=== PATIENT | female | born 1955 | race Caucasian/White ===

== ENCOUNTER 2016-04-18 14:22 | Emergency (ER) | payer BC ==
[2016-04-18 15:12] VITALS: BP 147/40
[2016-04-18] MEDS ORDERED: Ketorolac INJ* 60 MG/2 ML VIAL IM ONE (15:30)
[2016-04-18] MEDS ORDERED: Metoclopramide TAB* 10 MG PO ONE (15:31)
--- NOTE | 2016-04-18 15:35 | UC ---
Abdominal Pain Female HPI - HPI Summary HPI Summary: sudden onset this morning of abdominal cramping and diarrhea. Had about 8 episodes non-bloody diarrhea this morning, no fever, no vomiting. Tried to sip fluids, but this made her cramping pain worse. 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 Has had an appendectomy and hysterectomy. No history of colitis or diverticulitis. No GI disorders. Hurts to walk upright, feels best to curl up in a ball with heat on the abdomen. - History of Current Complaint Chief Complaint: UCAbdominalPain Stated Complaint: ABDOMINAL PAIN Time Seen by Provider: 04/18/16 15:17 Hx Obtained From: Patient Onset/Duration: Gradual Onset Timing: Constant Severity Initially: Mild Severity Currently: Moderate Location: Suprapubic Radiates: No Character: Aching, Colicy, Cramping, Dull Aggravating Factor(s): Food, Movement Alleviating Factor(s): Position - , Other: - heat Associated Signs and Symptoms: Positive: Negative, Decreased Appetite, Diarrhea. Negative: Diaphoresis, Fever, Cough, Chest Pain, Dizzy, Back Pain, Constipation, Blood in Stool, Urinary Symptoms, Vaginal Bleeding, Vaginal Discharge, Nausea, Vomiting - Risk Factors Ectopic Risk Factor: Negative Ovarian Torsion Risk Factor: Negative Allergies/Adverse Reactions: Allergies Allergy/AdvReac Type Severity Reaction Status Date / Time No Known Allergies Allergy Verified 04/18/16 15:12 Home Medications: Home Medications ALPRAZolam TAB* [Xanax TAB*] 0.5 mg PO BID PRN 04/18/16 [History Confirmed 04/18] Diclofenac Potassium (Migraine [Cambia] 50 mg PO DAILY 04/18/16 [History Confirmed 04/18/16] Divalproex Sodium [Depakote ER] 1,000 mg PO DAILY 04/18/16 [History Confirmed ] PMH/Surg Hx/FS Hx/Imm Hx Previously Healthy: Yes - Surgical History Surgical History: Yes Surgery Procedure, Year, and Place: [facility] Hysterectomy]. C section - Family History Known Family History: Positive: Other - no GI disorders in family - Social History Occupation: Employed Full-time Lives: With Family Alcohol Use: None Substance Use Type: None Smoking Status (MU): Never Smoked Tobacco Review of Systems Constitutional: Negative Skin: Negative Eyes: Negative ENT: Negative Respiratory: Negative Cardiovascular: Negative Gastrointestinal: Abdominal Pain, Diarrhea Genitourinary: Negative Motor: Negative Neurovascular: Negative Musculoskeletal: Negative Neurological: Negative Psychological: Negative All Other Systems Reviewed And Are Negative: Yes Physical Exam Triage Information Reviewed: Yes Appearance: Well-Appearing, Well-Nourished, Pain Distress - sitting hunched forward, clutching lower abdomen, Thin Vital Signs: Initial Vital Signs Temp 99.3 F 04/18/16 15:08 Pulse 100 04/18/16 15:08 Resp 18 04/18/16 15:08 BP 147/40 04/18/16 15:08 Pulse Ox 100 04/18/16 15:08 Vital Signs Reviewed: Yes Eye Exam: Normal Neck exam: Normal Neck: Positive: Supple Respiratory Exam: Normal Respiratory: Positive: Lungs clear, Normal breath sounds, No respiratory distress, No accessory muscle use Cardiovascular Exam: Normal Cardiovascular: Positive: RRR, No Murmur, Pulses Normal, Brisk Capillary Refill Abdomen Description: Positive: No Organomegaly, Soft, Other: - mild/mod diffuse lower abdomen tenderness. No peritoneal signs. No rebound or guarding. No psoas sign.. Negative: Bruit, CVA Tenderness (R), CVA Tenderness (L), Distended, Guarding, Hernia @, Hepatomegaly, McBurney's Point Tenderness, Peritoneal Signs , Pulsatile Mass, Splenomegaly Musculoskeletal Exam: Normal Neurological Exam: Normal Psychological Exam: Normal Skin Exam: Normal Re-Evaluation - Re-Evaluation First Eval Re-Evaluation Time: 16:00 Change: Improved Comment: feeling some better after Toradol IM. Wants to try home treatment, will go to ER if worsening Abd Pain Female Course/Dx - Differential Dx/Diagnosis Provider Diagnoses: gastroenteritis Discharge - Discharge Plan Condition: Stable Disposition: HOME Prescriptions: Dicyclomine CAP* [Bentyl CAP*] 10 mg PO TID PRN #14 cap PRN Reason: abdominal cramps Patient Education Materials: Enteritis (ED) Referrals: Gagandeep COBB,Galo Drake [Primary Care Provider] - Additional Instructions: If your pain continues to worsen, particularly if you have bloody stools or fever, you should go to the ER for further testing.
[2016-04-18] MEDS ORDERED: HYDROcodone/ACETAMIN 5-325 MG* 1 TAB PO ONE (15:56)
== END 2016-04-18 16:10 | disposition home or self-care (01) ==
LOC: UCCORT 14:22
DX: K52.9 Noninfective gastroenteritis and colitis, unspecified (principal)
CPT/HCPCS: 96372; 99202; A9270-GY; G0463; J1885

== ENCOUNTER 2017-06-05 09:28 | Emergency (ER) | payer BC ==
--- NOTE | 2017-06-05 11:20 | UC ---
Ear Complaint HPI - HPI Summary HPI Summary: 62 y/o female presents to the urgent care c/o nasal congestion w/ green nasal discharge, RUSSO nd sinus pain and pressure for the past week. Pt also states left ear pain w/ yellowish discharge and decrease hearing since yesterday. Pain is 6/ 10/ She has taken Mucinex and her medications for Migraine, and has done the netti pot to alleviate symptoms w/o any improvement. Pt denies fever, dizziness , SOB, chest pain, cough, abdominal pain, N/V/D. - History of Current Complaint Stated Complaint: EAR PAIN & DRAINAGE Time Seen by Provider: 06/05/17 11:14 Hx Obtained From: Patient Onset/Duration: Gradual Onset, Lasting Weeks - 1 week, Still Present, Worse Since - yesterday Severity Initially: Mild Severity Currently: Moderate Pain Intensity: 6 Pain Scale Used: 0-10 Numeric Aggravating Factors: Other - touch left ear Alleviating Factors: OTC Meds Associated Signs/Symptoms: Positive: Hearing Loss - left ear, URI Symptoms - Allergies/Home Medications Allergies/Adverse Reactions: Allergies Allergy/AdvReac Type Severity Reaction Status Date / Time No Known Allergies Allergy Verified 06/05/17 11:25 Home Medications: Home Medications Amitriptyline TAB* [Elavil TAB*] 1 tab BEDTIME 06/05/17 [History Confirmed 06/05] Estradiol PATCH 0.0375/DAY* 1 patch WEEKLY 06/05/17 [History Confirmed 06/05/17] PMH/Surg Hx/FS Hx/Imm Hx Previously Healthy: Yes Neurological History: Migraine - Surgical History Surgical History: Yes Surgery Procedure, Year, and Place: [facility] Hysterectomy]. C section - Family History Known Family History: Positive: None - Pt denies FMHX - Social History Occupation: Employed Full-time Lives: With Family Alcohol Use: None Substance Use Type: None Smoking Status (MU): Never Smoked Tobacco Review of Systems Constitutional: Negative Skin: Negative Eyes: Negative ENT: Ear Ache - left ear pain, Nasal Discharge, Sinus Congestion, Sinus Pain/ Tenderness Respiratory: Negative Cardiovascular: Negative Gastrointestinal: Negative Genitourinary: Negative Motor: Negative Neurovascular: Negative Musculoskeletal: Negative Neurological: Headache Psychological: Negative Is Patient Immunocompromised?: No All Other Systems Reviewed And Are Negative: Yes Physical Exam - Summary Physical Exam Summary: Vitals: reviewed General: Well developed, well-nourished female patient with NAD. Head and face: Normocephalic and atraumatic, Positive tenderness over the frontal and maxillary sinuses.. Eyes: PERRLA, EOMI x 2. Normal conjunctiva. No eye discharge. ENT: Left esternal ear canal w/ erythema and moderate yellwoish ear discharge, unable to visualize LF TM, RT external ear canal clear, RT TM WNL. Nose: with yellowish discharge and erythematous mucosa. Pharynx with mild erythema, no exudate. Neck: Supple, no JVD, no carotid bruits and no lymphadenopathy. Lungs: clear, no rales, no rhonchi, no wheezes. CVS: RRR, S1 and S2 present no murmurs or gallops appreciated. Abdomen: soft nontender with positive bowel sounds. Extremities: no edema noted. Neuro: WNL. Skin: warm and dry Triage Information Reviewed: Yes Ear Complaint Course/Dx - Course Course Of Treatment: 62 y/o female presents to the urgent care c/o nasal congestion w/ green nasal discharge, RUSSO nd sinus pain and pressure for the past week. Pt also states left ear pain w/ yellowish discharge and decrease hearing since yesterday. Pain is 6/10/ She has taken Mucinex and her medications for Migraine, and has done the netti pot to alleviate symptoms w/o any improvement. Pt denies fever, dizziness, SOB, chest pain, cough, abdominal pain , N/V/D. Hx obtained. Pt w/ acute bacterial sinusitis and left otitis externa on examination. Pt with 1 week of symptoms getting worse. Pt Rx Augmentin PO and flonase nasal spray and Ciprodex otic drops for otitis externa. Advised to contineu w/ Ibuprofen PO for pain. Discharge instructions explained to Pt. Advised to Return to the clinic or PCP if symptoms do not improve.Pt understood and agreed with plan of care. - Differential Dx/Diagnosis Differential Diagnosis/HQI/PQRI: Otitis Externa, Otitis Media, Perforated TM, Pharyngitis, URI, Other - sinusitis, Provider Diagnoses: 1- Acute bacterial sinusitis. 2-Left otitis externa Discharge - Discharge Plan Condition: Stable Disposition: HOME Prescriptions: Amoxicillin/Clavulanate TAB* [Augmentin TAB 875*] 875 mg PO BID #20 tab Ciproflox/Dexameth OTIC.SUSP* [Ciprodex OTIC.SUSP*] 4 drop LEFT EAR BID #1 btl Fluticasone NASAL SPRAY 50MCG* [Flonase NASAL SPRAY 50MCG*] 2 spray BOTH NARES DAILY #1 btl Patient Education Materials: Sinusitis (ED), Otitis Externa (ED) Referrals: Suzette Barnhart MD [Primary Care Provider] - 3 Days Additional Instructions: 1- Please increase fluid intake and rest. take full course of antibiotic to avoid resistance 2-Use Flonase as directed to help drain fluid. Also buy saline drops to clear sinuses 3-Apply the Otic drops as directed to alleviate your left otitis externa. Continue taking Iuprofen or Tylenol PO q6-8hgrsafter meals for pain and swelling 4-Return to the clinic or PCP in 3 days if symptoms do not improve for further management and treatment
[2017-06-05 11:32] VITALS: BP 120/75
== END 2017-06-05 11:53 | disposition home or self-care (01) ==
LOC: UCCORT 09:28
DX: J01.90 Acute sinusitis, unspecified (principal); B96.89 Other specified bacterial agents as the cause of diseases classified elsewhere; H60.92 Unspecified otitis externa, left ear
CPT/HCPCS: 99212; G0463

== ENCOUNTER 2017-06-14 14:06 | Emergency (ER) | payer BC ==
[2017-06-14 14:35] VITALS: BP 131/73
--- NOTE | 2017-06-14 15:16 | UC ---
Ear Complaint HPI - HPI Summary HPI Summary: PT COMPLETED HER 9TH OF 10 DAYS WORTH OF AMOXICILLIN FOR EAR AND SINUS INFECTIONS SHE IS STILL USING HER DROPS ON THE LEFT EAR. SHE RETRUNS BECAUSE THE R EAR IS PLUGGED AND THE L STILL HAS SOME PAIN. HER SINUSES ARE BETTER. NO RUSSO OR FEVER. - History of Current Complaint Hx Obtained From: Patient Onset/Duration: Gradual Onset Aggravating Factors: Nothing Alleviating Factors: Nothing Associated Signs/Symptoms: Negative: Discharge, Foreign Body Sensation, Trauma to Ear <Fifi Brownlee - Last Filed: 06/14/17 16:16> - History of Current Complaint Pain Intensity: 3 <Iva Mora - Last Filed: 06/14/17 16:36> - History of Current Complaint Chief Complaint: UCEar Stated Complaint: (L) EAR COMPLAINT Time Seen by Provider: 06/14/17 15:14 - Allergies/Home Medications Allergies/Adverse Reactions: Allergies Allergy/AdvReac Type Severity Reaction Status Date / Time No Known Allergies Allergy Verified 06/14/17 14:34 PMH/Surg Hx/FS Hx/Imm Hx Neurological History: Migraine Psychological History: Anxiety - Immunization History Vaccination Up to Date: Yes <Fifi Brownlee - Last Filed: 06/14/17 16:16> - Surgical History Surgical History: Yes Surgery Procedure, Year, and Place: [facility] Hysterectomy]. C section - Family History Known Family History: Positive: None - Pt denies FMHX, Other - no GI disorders in family - Social History Alcohol Use: None Substance Use Type: None Smoking Status (MU): Never Smoked Tobacco <Iva Mora - Last Filed: 06/14/17 16:36> Review of Systems Constitutional: Negative Skin: Negative Eyes: Negative ENT: Ear Ache - L/R is plugged Respiratory: Negative Cardiovascular: Negative Gastrointestinal: Negative Genitourinary: Negative Motor: Negative Neurovascular: Negative Musculoskeletal: Negative Neurological: Negative Psychological: Negative Is Patient Immunocompromised?: No All Other Systems Reviewed And Are Negative: Yes <Fifi Brownlee - Last Filed: 06/14/17 16:16> Physical Exam Triage Information Reviewed: Yes Appearance: Well-Appearing Vital Signs: Initial Vital Signs Temp 96.3 F 06/14/17 14:30 Pulse 96 06/14/17 14:30 Resp 16 06/14/17 14:30 BP 131/73 06/14/17 14:30 Pulse Ox 100 06/14/17 14:30 Vital Signs Reviewed: Yes Eyes: Positive: Conjunctiva Clear ENT: Positive: Pharynx normal, TM red - L(moderate), R occluded by cerumen. no pain with tragus pressure/auricle tug x2. mastoids non tender.. Negative: Nasal congestion, Nasal drainage Neck: Positive: Supple, Nontender, No Lymphadenopathy, Other: - no auricular adenopathy. Respiratory: Positive: Lungs clear, Normal breath sounds Cardiovascular: Positive: RRR, No Murmur Abdomen Description: Positive: Nontender, No Organomegaly, Soft Bowel Sounds: Positive: Present Musculoskeletal: Positive: ROM Intact Neurological: Positive: Alert Psychological: Positive: Age Appropriate Behavior Skin Exam: Normal <Fifi Brownlee - Last Filed: 06/14/17 16:16> Vital Signs: Initial Vital Signs Temp 96.3 F 06/14/17 14:30 Pulse 96 06/14/17 14:30 Resp 16 06/14/17 14:30 BP 131/73 06/14/17 14:30 Pulse Ox 100 06/14/17 14:30 <Iva Mora - Last Filed: 06/14/17 16:36> Re-Evaluation - Re-Evaluation Second Eval Re-Evaluation Time: 16:09 Change: Improved - R canal clear and TM lopez. L canal is clear and TM moderate erythema <Fifi Brownlee - Last Filed: 06/14/17 16:16> Ear Complaint Course/Dx - Course Course Of Treatment: L ear has failed 9 days of augmentin. pt agrees to take risk of possible diarrhea and c-diff from repeat antibiotics. pt already started a probiotic and will continue - Differential Dx/Diagnosis Provider Diagnoses: Cerumen impaction AD, OM <Fifi Brownlee - Last Filed: 06/14/17 16:16> Discharge - Sign-Out/Discharge Documenting (check all that apply): Discharge - Billing Disposition and Condition Condition: STABLE Disposition: HOME <Fifi Brownlee - Last Filed: 06/14/17 16:16> - Billing Disposition and Condition Condition: STABLE Disposition: HOME <Iva Mora - Last Filed: 06/14/17 16:36> - Discharge Plan Condition: Stable Disposition: HOME Prescriptions: Cefdinir [Cefdinir 300 MG CAP] 300 mg PO BID 10 Days #20 cap Patient Education Materials: Cerumen Impaction (ED), Ear Infection (ED) Referrals: Suzette Barnhart MD [Primary Care Provider] - 7 Days Additional Instructions: STOP THE AUGMENTIN Attestation Statement User Type: Provider - I was available for consult. This patient was seen by the advanced practice provider. The patient was not presented to, seen by, or examined by me.-Lay <Iva Mora - Last Filed: 06/14/17 16:36> Addendum entered and electronically signed by Fifi Brownlee PA 06/14/17 16:17 : Addendum Addendum: Antibiotic choice d/w Dr Mora. We agreed on Cefdinir.
== END 2017-06-14 16:20 | disposition home or self-care (01) ==
LOC: UCCORT 14:06
DX: H61.21 Impacted cerumen, right ear (principal); H66.92 Otitis media, unspecified, left ear
CPT/HCPCS: 99213; G0463

== ENCOUNTER 2019-03-23 13:59 | Emergency (ER) | payer BC ==
[2019-03-23 14:25] VITALS: BP 139/84
--- NOTE | 2019-03-23 14:41 | UC ---
Complaint Female HPI - HPI Summary HPI Summary: 63-year-old female presents with onset of of urinary frequency yesterday. States today she started with dysuria and urgency. Has some mild suprapubic discomfort. Denies fever, chills, back or flank pain, nausea, vomiting, hematuria, vaginal discharge, or abnormal vaginal bleeding. - History Of Current Complaint Chief Complaint: UCGU Stated Complaint: uti Time Seen by Provider: 03/23/19 14:20 Hx Obtained From: Patient Pain Intensity: 2 - Allergies/Home Medications Allergies/Adverse Reactions: Allergies Allergy/AdvReac Type Severity Reaction Status Date / Time No Known Allergies Allergy Verified 03/23/19 14:06 PMH/Surg Hx/FS Hx/Imm Hx Previously Healthy: Yes Psychological History: Anxiety, Depression - Surgical History Surgical History: Yes Surgery Procedure, Year, and Place: [facility] Hysterectomy]. C section - Family History Known Family History: Positive: Non-Contributory - Social History Occupation: Employed Full-time Lives: With Family Alcohol Use: None Substance Use Type: None Smoking Status (MU): Never Smoked Tobacco - Immunization History Vaccination Up to Date: Yes Review of Systems All Other Systems Reviewed And Are Negative: Yes Constitutional: Negative: Fever, Chills Respiratory: Positive: Negative Cardiovascular: Positive: Negative Gastrointestinal: Negative: Abdominal Pain, Vomiting, Nausea Genitourinary: Positive: Dysuria, Frequency, Urgency. Negative: Hematuria, Vaginal/Penile Discharge, Abnormal Bleeding Musculoskeletal: Positive: Negative Neurological: Positive: Negative Is Patient Immunocompromised?: No Physical Exam - Summary Physical Exam Summary: GENERAL APPEARANCE: Well developed, well nourished, alert and cooperative, and appears to be in no acute distress. CARDIAC: Normal S1 and S2. No S3, S4 or murmurs. Rhythm is regular. There is no peripheral edema, cyanosis or pallor. Extremities are warm and well perfused. Capillary refill is less than 2 seconds. Peripheral pulses intact. LUNGS: Clear to auscultation without rales, rhonchi, wheezing or diminished breath sounds. ABDOMEN: Positive bowel sounds. Soft, nondistended, nontender. No guarding or rebound. No masses or hepatosplenomegally. No CVA tenderness. MUSKULOSKELETAL: ROM intact to all extremities. No joint erythema or tenderness. Normal muscular development. Normal gait. SKIN: Skin normal color, texture and turgor with no lesions or eruptions. Triage Information Reviewed: Yes Vital Signs: Initial Vital Signs Temp 98.5 F 03/23/19 14:07 Pulse 92 03/23/19 14:07 Resp 16 03/23/19 14:07 BP 139/84 03/23/19 14:07 Pulse Ox 97 03/23/19 14:07 Vital Signs Reviewed: Yes Complaint Female Dx - Course Course Of Treatment: 63-year-old female presents with onset of of urinary frequency yesterday. States today she started with dysuria and urgency. Has some mild suprapubic discomfort. Denies fever, chills, back or flank pain, nausea, vomiting, hematuria, vaginal discharge, or abnormal vaginal bleeding. Afebrile. Vital signs stable. Patient had an overall unremarkable exam. [id number] urinalysis showed 3+ leukocyte esterase and 1+ blood. Urine culture is pending. Reviewed results with the patient and recommending empiric treatment for a urinary tract infection pending the culture results. She is to start Macrobid 1 tablet twice a day 5 days. I will also provide her with a prescription for Pyridium 100 mg 3 times a day 2 days to help with the discomfort. She is to follow-up with her primary care provider in 3-5 days if symptoms are not improving. Anticipatory guidance and warning symptoms are reviewed with the patient. Verbalizes understanding and agrees with plan of care. - Differential Dx/Diagnosis Differential Diagnosis/HQI/PQRI: Ureteral Stone, Urinary Tract Infection, Other - Vulvovaginitis, vaginal atrophy Provider Diagnosis: UTI (urinary tract infection) Discharge ED - Sign-Out/Discharge Documenting (check all that apply): Patient Departure All imaging exams completed and their final reports reviewed: No Studies - Discharge Plan Condition: Stable Disposition: HOME Prescriptions: Nitrofurantoin Monohyd/M-Cryst [Macrobid 100 mg Capsule] 100 mg PO BID 5 Days # 10 cap Phenazopyridine TAB* [Pyridium 100 mg TAB*] 100 mg PO TID #6 tab Patient Education Materials: Urinary Tract Infection in Women (ED) Referrals: No Primary Care Phys,NOPCP [Primary Care Provider] - Additional Instructions: Your urine test in the clinic today is suggestive of a urinary tract infection. We will start you on an antibiotic to treat for the infection. We will also send a urine culture today to see what bacteria grow out and make sure the antibiotic you were prescribed is appropriate to treat the infection. It will take 48-72 hours to get these results. We will contact you if there is any change in your treatment plan. Start Macrobid 1 tablet twice a day for 5 days. Take Pyridium 1 tablet every 8 hours for next 2 days to help with the discomfort. This medication will turn your urine an orange color. Drink plenty of fluids. To help prevent urinary tract infections: 1) Be sure to wipe from front to back. 2) Urinate immediately after any sexual intercourse. 3) Avoid taking bubble baths. Follow up with your primary care provider in 3-5 days if symptoms persist. Seek immediate medical attention in the emergency room if you develop fever greater than 100.5 F, have severe abdominal pain, persistent vomiting, or any worsening of symptoms. - Billing Disposition and Condition Condition: STABLE Disposition: Home
== END 2019-03-23 14:54 | disposition home or self-care (01) ==
LOC: UCCORT 13:59
DX: N39.0 Urinary tract infection, site not specified (principal)
CPT/HCPCS: 81003; 87077; 87086; 87186; 99212; G0463